=== PATIENT | male | born 1990 | race Caucasian/White ===

== ENCOUNTER 2020-12-20 12:53 | Emergency (ER) | payer MEDICAID ==
[~2020-12-20] VITALS: Ht 188 cm; Wt 63.0 kg
[2020-12-20 13:07] VITALS: BP 124/73
== END 2020-12-20 13:44 | disposition home or self-care (01) ==
LOC: ER 13:16
DX: Z13.9 Encounter for screening, unspecified (principal); Z59.0 Homelessness; Z88.0 Allergy status to penicillin
CPT/HCPCS: 99283; Z7610